=== PATIENT | male | born 1975 | race African-American/Black ===

== ENCOUNTER 2022-07-19 17:50 | Emergency (ER) | payer MEDICAID ==
[~2022-07-19] VITALS: Ht 182.9 cm; Wt 91.0 kg
[2022-07-19] MEDS ORDERED: TETANUS, DIPHTHERIA, PERTUSSIS VAC/PF 0.5ML (>10YR OLD) IM ONE (19:15)
[2022-07-19] MEDS ORDERED: LIDOCAINE HCL/PF 1% 10 MG/ML 5ML VIAL INFIL ONE (19:15)
[2022-07-19] MEDS ORDERED: BACITRACIN ZINC OINT UDPKT TOP ONE (19:15)
[2022-07-19 21:00] VITALS: BP 154/98
[2022-07-19] MEDS ORDERED: HYDROCODONE/ACETAMINOPHEN 5/325MG TABLET PO ONE (21:45)
[2022-07-20] MEDS ORDERED: CHLORHEXIDINE GLUCONATE 0.12% MOUTHWASH UDC SSP SCH (09:00)
== END 2022-07-19 22:15 | disposition home or self-care (01) ==
LOC: ER 17:50
DX: S01.512A Laceration without foreign body of oral cavity, initial encounter (principal); W19.XXXA Unspecified fall, initial encounter; Y93.89 Activity, other specified; Y92.89 Other specified places as the place of occurrence of the external cause; Y99.8 Other external cause status
CPT/HCPCS: 41250; 70450; 70486; 90471; 90715; 99285; J3490; Z7610